=== PATIENT | male | born 1995 | race Caucasian/White ===

== ENCOUNTER 2019-12-02 03:42 | Emergency (ER) | payer OTHER ==
[~2019-12-02] VITALS: Ht 180.3 cm; Wt 95.3 kg
[2019-12-02] MEDS ORDERED: SINGULAIR 10 MG10 M1 PO (03:46)
[2019-12-02] MEDS ORDERED: PROAIR HFA8.5 GM INH (03:47)
[2019-12-02] MEDS ORDERED: BREO ELLIPTA 21 EACH INH (03:47)
[2019-12-02 04:27] LABS: ABSOLUTE NEUTROPHILS 4.4 thou/uL (1.4-8.2); HEMATOCRIT 49.4 % (42.0-52.0); HEMOGLOBIN 16.8 gm/dL (14.0-18.0); LYMPHOCYTES 38.2 % (24.0-44.0); MCH 30.2 pg (26.0-34.0); MONOCYTES 8.2 % (1.0-8.0); PLATELET COUNT 296 thou/uL (150-400); POLYS 51.6 % (36.0-66.0); RBC 5.55 mil/uL (4.50-6.00); RDW 13.4 % (10.5-14.5); WBC 8.5 thou/uL (4.0-11.0)
[2019-12-02 04:31] LABS: ANION GAP 11 mmol/L (7-16); BUN 15 mg/dL (7-18); CALCIUM 8.8 mg/dL (8.5-10.1); CHLORIDE 100 mmol/L (98-107); CO2 25 mmol/L (21-32); CREATININE 1.1 mg/dL (0.7-1.3); GLUCOSE 109 mg/dL (74-106); SODIUM 136 mmol/L (136-145)
[2019-12-02 04:37] LABS: ALBUMIN 4.3 g/dL (3.4-5.0); DIRECT BILIRUBIN < 0.1 mg/dL (<0.1-0.2); LIPASE 90 U/L (73-393); SGOT 29 U/L (15-37); SGPT 42 U/L (30-65); TOTAL BILIRUBIN 0.6 mg/dL (<0.1-1.0); TOTAL PROTEIN 7.6 g/dL (6.4-8.2)
[2019-12-02 04:38] LABS: POTASSIUM 3.8 mmol/L (3.5-5.1)
[2019-12-02] MEDS ORDERED: MECLIZINE HCL25 MG PO (06:51)
[2019-12-02 07:01] VITALS: BP 112/66
== END 2019-12-02 07:03 | disposition home or self-care (01) ==
LOC: ER 03:42
PROVIDERS: Emergency Medicine
DX: K29.70 Gastritis, unspecified, without bleeding (principal); J45.909 Unspecified asthma, uncomplicated; F17.210 Nicotine dependence, cigarettes, uncomplicated; Z79.899 Other long term (current) drug therapy